=== PATIENT | female | born 1980 | race Caucasian/White ===

== ENCOUNTER 2017-12-08 02:52 | Inpatient (IN) | payer MEDICAID ==
[~2017-12-08] VITALS: Ht 157.5 cm; Wt 65.3 kg
[2017-12-08 03:13] LABS: BASOPHILS 0.1 % (0-2); EOSINOPHILS 2.3 % (0-7); HEMATOCRIT 40.2 % (36.0-48.0); HEMOGLOBIN 13.8 g/dL (12-16); IMMATURE GRANULOCYTES 0.2 % (0-5); LYMPHOCYTES 28.5 % (15-50); MCH 30.9 pg (26.0-34.0); MCHC 34.3 g/dL (31.0-37.0); MCV 90.1 fL (80.0-100.0); MEAN PLATELET VOLUME 9.6 fL (7.4-10.4); NEUTROPHILS 61.9 % (40-80); PLATELET COUNT 265 10x3/uL (130-400); RBC 4.46 10x6/uL (4.00-5.40); RDW 12.2 % (11.5-14.5)
[2017-12-08 03:23] LABS: APPEARANCE CLEAR (CLEAR); COLOR YELLOW (YELLOW); GLUCOSE NEGATIVE (NEGATIVE); KETONE NEGATIVE (NEGATIVE); NITRITE NEGATIVE (NEGATIVE); PROTEIN NEGATIVE (NEGATIVE); SPECIFIC GRAVITY 1.005 (1.005-1.020); UROBILINOGEN NORMAL (NORMAL)
[2017-12-08 03:23] LABS: ALBUMIN 3.5 g/dL (3.4-5.0); ALKALINE PHOSPHATASE 134 U/L (46-116); ALT (SGPT) 35 U/L (10-68); AMYLASE - SERUM 68 U/L (25-115); CALC OSMOLALITY 279 mosm/kg (275-300); CALCIUM 8.9 mg/dL (8.5-10.1); CARBON DIOXIDE 29.1 mmol/L (21.0-32.0); CHLORIDE - SERUM 106 mmol/L (98-107); CREATININE - SERUM 0.7 mg/dL (0.6-1.3); GLUCOSE 90 mg/dL (74-106); LIPASE 132 U/L (73-393); PROTEIN - SERUM 7.3 g/dL (6.4-8.2); SODIUM 142 mmol/L (136-145); UREA NITROGEN 5 mg/dL (7-18); eGFR NON AFRICAN AMERICAN > 90 mL/min (90-120)
[2017-12-08 03:24] LABS: BILIRUBIN NEGATIVE (NEGATIVE)
[2017-12-08 03:37] LABS: UDS - AMPHET NEGATIVE QUAL (NEGATIVE); UDS - BARB NEGATIVE QUAL (NEGATIVE); UDS - BENZO NEGATIVE QUAL (NEGATIVE); UDS - COCAINE NEGATIVE QUAL (NEGATIVE); UDS - OPIATE NEGATIVE QUAL (NEGATIVE); UDS - PCP NEGATIVE QUAL (NEGATIVE); UDS - THC NEGATIVE QUAL (NEGATIVE)
[2017-12-08 06:23] VITALS: BP 125/75; BMI 26.6
[2017-12-08] MEDS ORDERED: LITHIUM CI8 MEQ/5 ML (06:36)
[2017-12-08] MEDS ORDERED: FER-IN-SOL DROP50 ML (06:37)
[2017-12-08 07:51] VITALS: BP 125/70
[2017-12-08 10:50] VITALS: BP 120/71
[2017-12-08 14:49] VITALS: BMI 26.5
[2017-12-08 15:25] VITALS: Ht 157.5 cm; Wt 65.3 kg
[2017-12-08 15:55] VITALS: BP 113/69
[2017-12-08 20:00] VITALS: BP 129/55
[2017-12-09] VITALS (7 sets, daily range): BP systolic 119–146; BP diastolic 61–87
[2017-12-09 05:52] LABS: BASOPHILS 0.2 % (0-2); EOSINOPHILS 2.5 % (0-7); HEMOGLOBIN 11.3 g/dL (12-16); IMMATURE GRANULOCYTES 0.2 % (0-5); LYMPHOCYTES 27.8 % (15-50); MCH 30.2 pg (26.0-34.0); MCHC 33.2 g/dL (31.0-37.0); MCV 90.9 fL (80.0-100.0); MEAN PLATELET VOLUME 10.3 fL (7.4-10.4); MONOCYTES 8.4 % (2-11); NEUTROPHILS 60.9 % (40-80); PLATELET COUNT 221 10x3/uL (130-400); RBC 3.74 10x6/uL (4.00-5.40); RDW 12.2 % (11.5-14.5)
[2017-12-09 05:54] LABS: WBC 5.6 10x3/uL (4.8-10.8)
[2017-12-09 06:19] LABS: CALCIUM 7.9 mg/dL (8.5-10.1); CARBON DIOXIDE 23.8 mmol/L (21.0-32.0); CHLORIDE - SERUM 108 mmol/L (98-107); POTASSIUM - SERUM 3.9 mmol/L (3.5-5.1); SODIUM 140 mmol/L (136-145); UREA NITROGEN 5 mg/dL (7-18)
[2017-12-09 06:32] LABS: CALC OSMOLALITY 273 mosm/kg (275-300); CREATININE - SERUM 0.5 mg/dL (0.6-1.3); GLUCOSE 65 mg/dL (74-106); eGFR NON AFRICAN AMERICAN > 90 mL/min (90-120)
[2017-12-10 04:19] VITALS: BP 155/87
[2017-12-10 04:55] LABS: BASOPHILS 0.1 % (0-2); EOSINOPHILS 1.9 % (0-7); HEMATOCRIT 33.4 % (36.0-48.0); HEMOGLOBIN 10.9 g/dL (12-16); IMMATURE GRANULOCYTES 0.1 % (0-5); LYMPHOCYTES 20.4 % (15-50); MCH 29.7 pg (26.0-34.0); MCHC 32.6 g/dL (31.0-37.0); MEAN PLATELET VOLUME 10.2 fL (7.4-10.4); MONOCYTES 6.9 % (2-11); NEUTROPHILS 70.6 % (40-80); PLATELET COUNT 203 10x3/uL (130-400); RBC 3.67 10x6/uL (4.00-5.40)
[2017-12-10 05:13] LABS: CALCIUM 7.9 mg/dL (8.5-10.1); CHLORIDE - SERUM 107 mmol/L (98-107); CREATININE - SERUM 0.6 mg/dL (0.6-1.3); POTASSIUM - SERUM 3.4 mmol/L (3.5-5.1); SODIUM 142 mmol/L (136-145); eGFR NON AFRICAN AMERICAN > 90 mL/min (90-120)
[2017-12-10 05:21] LABS: CALC OSMOLALITY 280 mosm/kg (275-300); GLUCOSE 136 mg/dL (74-106); UREA NITROGEN 2 mg/dL (7-18)
[2017-12-10 08:04] VITALS: BP 125/77
[2017-12-10 11:43] VITALS: BP 128/84
[2017-12-10] MEDS ORDERED: NICODERM C1 PATCH .1 TRANSDERM (13:52)
[2017-12-10] MEDS ORDERED: PROTONIX40 MG PO (13:53)
[2017-12-10] MEDS ORDERED: ZOFRAN4 MG PO (13:53)
== END 2017-12-10 16:21 | disposition home or self-care (01) | DRG 389 ==
LOC: D.ER 02:52 → D.M2 04:44 → D.EDHOLD 04:44 → D.M2 05:01
PROVIDERS: Family Medicine; Internal Medicine Nephrology
DX: K56.609 Unspecified intestinal obstruction, unspecified as to partial versus complete obstruction (principal); F17.203 Nicotine dependence unspecified, with withdrawal; K21.9 Gastro-esophageal reflux disease without esophagitis; G47.00 Insomnia, unspecified

== ENCOUNTER 2017-12-21 23:24 | Emergency (ER) | payer MEDICAID ==
[~2017-12-21] VITALS: Ht 157.5 cm; Wt 63.6 kg
[~2017-12-21 23:24] MED LIST: FER-IN-SOL DROP50 ML; LITHIUM CI8 MEQ/5 ML; NICODERM C1 PATCH .1 TRANSDERM; PROTONIX40 MG PO; ZOFRAN4 MG PO
[2017-12-21 23:31] VITALS: BP 134/91; Ht 157.5 cm; Wt 63.6 kg
[2017-12-22 00:13] LABS: BASOPHILS 0.3 % (0-2); EOSINOPHILS 1.9 % (0-7); HEMOGLOBIN 13.6 g/dL (12-16); IMMATURE GRANULOCYTES 0.2 % (0-5); LYMPHOCYTES 38.3 % (15-50); MCH 30.2 pg (26.0-34.0); MCHC 33.2 g/dL (31.0-37.0); MCV 91.1 fL (80.0-100.0); MONOCYTES 9.9 % (2-11); NEUTROPHILS 49.4 % (40-80); RDW 12.2 % (11.5-14.5); WBC 5.9 10x3/uL (4.8-10.8)
[2017-12-22 00:16] LABS: ALBUMIN 3.9 g/dL (3.4-5.0); ALKALINE PHOSPHATASE 181 U/L (46-116); ALT (SGPT) 30 U/L (10-68); BILIRUBIN - TOTAL 0.75 mg/dL (0.2-1.3); CALC OSMOLALITY 282 mosm/kg (275-300); CARBON DIOXIDE 28.3 mmol/L (21.0-32.0); CHLORIDE - SERUM 104 mmol/L (98-107); CREATININE - SERUM 0.7 mg/dL (0.6-1.3); GLUCOSE 93 mg/dL (74-106); LIPASE 133 U/L (73-393); POTASSIUM - SERUM 3.7 mmol/L (3.5-5.1); SODIUM 143 mmol/L (136-145); UREA NITROGEN 7 mg/dL (7-18); eGFR NON AFRICAN AMERICAN > 90 mL/min (90-120)
[2017-12-22 00:17] LABS: PLATELET COUNT 325 10x3/uL (130-400)
== END 2017-12-22 00:16 | disposition left against medical advice (07) ==
LOC: D.ER 23:24
PROVIDERS: Family Medicine
DX: R10.9 Unspecified abdominal pain (principal); F17.200 Nicotine dependence, unspecified, uncomplicated

== ENCOUNTER 2018-01-09 16:12 | Emergency (ER) | payer MEDICAID ==
[~2018-01-09] VITALS: Ht 157.5 cm; Wt 63.6 kg
[2018-01-09 16:29] VITALS: Ht 157.5 cm; Wt 63.6 kg
[2018-01-09 22:52] LABS: BASOPHILS 0.4 % (0-2); HEMATOCRIT 35.8 % (36.0-48.0); HEMOGLOBIN 11.8 g/dL (12-16); IMMATURE GRANULOCYTES 0.1 % (0-5); LYMPHOCYTES 38.3 % (15-50); MCH 29.8 pg (26.0-34.0); MCV 90.4 fL (80.0-100.0); MEAN PLATELET VOLUME 10.1 fL (7.4-10.4); MONOCYTES 7.8 % (2-11); NEUTROPHILS 49.4 % (40-80); RBC 3.96 10x6/uL (4.00-5.40); RDW 12.4 % (11.5-14.5); WBC 7.2 10x3/uL (4.8-10.8)
[2018-01-09 22:53] LABS: PLATELET COUNT 254 10x3/uL (130-400)
[2018-01-09 23:11] LABS: HCG SERUM NEGATIVE (NEGATIVE)
[2018-01-09 23:15] LABS: ALBUMIN 3.3 g/dL (3.4-5.0); ALKALINE PHOSPHATASE 154 U/L (46-116); ALT (SGPT) 17 U/L (10-68); BILIRUBIN - TOTAL 0.31 mg/dL (0.2-1.3); CALC OSMOLALITY 279 mosm/kg (275-300); CALCIUM 8.4 mg/dL (8.5-10.1); CARBON DIOXIDE 22.8 mmol/L (21.0-32.0); CHLORIDE - SERUM 110 mmol/L (98-107); CREATININE - SERUM 0.7 mg/dL (0.6-1.3); GLUCOSE 87 mg/dL (74-106); POTASSIUM - SERUM 3.8 mmol/L (3.5-5.1); PROTEIN - SERUM 6.8 g/dL (6.4-8.2); SODIUM 142 mmol/L (136-145); UREA NITROGEN 8 mg/dL (7-18); eGFR NON AFRICAN AMERICAN > 90 mL/min (90-120)
[2018-01-09 23:18] LABS: APPEARANCE CLEAR (CLEAR); BILIRUBIN NEGATIVE (NEGATIVE); COLOR YELLOW (YELLOW); GLUCOSE NEGATIVE (NEGATIVE); KETONE NEGATIVE (NEGATIVE); NITRITE NEGATIVE (NEGATIVE); PROTEIN NEGATIVE (NEGATIVE); UROBILINOGEN NORMAL (NORMAL)
[2018-01-09 23:24] LABS: THYROID STIMULATING HORMONE 0.86 uIU/mL (0.36-3.74)
[2018-01-09] MEDS ORDERED: NORCO 7.5/325 T1 TA1 PO (23:42)
[2018-01-09 23:51] VITALS: BP 117/81
== END 2018-01-09 23:51 | disposition home or self-care (01) ==
LOC: D.ER 16:12
PROVIDERS: Family Medicine
DX: M54.5 Low back pain (principal); F17.200 Nicotine dependence, unspecified, uncomplicated

== ENCOUNTER 2018-01-18 00:31 | Emergency (ER) | payer MEDICAID ==
[~2018-01-18] VITALS: Ht 157.5 cm; Wt 59.0 kg
[~2018-01-18 00:31] MED LIST changes: +NORCO 7.5/325 T1 TA1 PO
[2018-01-18 00:34] VITALS: Ht 157.5 cm; Wt 59.0 kg
[2018-01-18 00:53] LABS: APPEARANCE HAZY (CLEAR); BILIRUBIN NEGATIVE (NEGATIVE); COLOR YELLOW (YELLOW); GLUCOSE NEGATIVE (NEGATIVE); KETONE SMALL mg/dL (NEGATIVE); NITRITE NEGATIVE (NEGATIVE); PROTEIN TRACE mg/dL (NEGATIVE); SPECIFIC GRAVITY 1.025 (1.005-1.020); UROBILINOGEN NORMAL (NORMAL)
[2018-01-18 00:54] LABS: HCG URINE NEGATIVE (NEGATIVE)
[2018-01-18 00:56] LABS: UDS - AMPHET NEGATIVE QUAL (NEGATIVE); UDS - BARB NEGATIVE QUAL (NEGATIVE); UDS - BENZO POSITIVE QUAL (NEGATIVE); UDS - COCAINE NEGATIVE QUAL (NEGATIVE); UDS - OPIATE NEGATIVE QUAL (NEGATIVE); UDS - PCP NEGATIVE QUAL (NEGATIVE); UDS - THC NEGATIVE QUAL (NEGATIVE)
[2018-01-18 01:03] LABS: HEMATOCRIT 32.4 % (36.0-48.0); HEMOGLOBIN 10.8 g/dL (12-16); LYMPHOCYTES 39.5 % (15-50); MCHC 33.3 g/dL (31.0-37.0); MEAN PLATELET VOLUME 9.7 fL (7.4-10.4); NEUTROPHILS 51.1 % (40-80); PLATELET COUNT 221 10x3/uL (130-400)
[2018-01-18 01:11] LABS: WHITE CELLS - URINE 0-5 /hpf (0-5)
[2018-01-18 01:12] LABS: BACTERIA MODERATE /hpf (NONE SEEN); CALCIUM OXALATE CRYSTALS RARE /hpf (NONE SEEN); EPITHELIAL CELLS 0-5 /hpf (0-5); GRANULAR CAST OCC /lpf (NONE SEEN); HYALINE CAST OCC /lpf (NONE SEEN); MUCUS <1+ /lpf (NONE SEEN); RED CELLS - URINE >50 /hpf (0-5)
[2018-01-18 01:18] LABS: ALBUMIN 3.4 g/dL (3.4-5.0); ALKALINE PHOSPHATASE 119 U/L (46-116); ALT (SGPT) 20 U/L (10-68); BILIRUBIN - TOTAL 0.61 mg/dL (0.2-1.3); CALC OSMOLALITY 273 mosm/kg (275-300); CALCIUM 8.2 mg/dL (8.5-10.1); CARBON DIOXIDE 29.5 mmol/L (21.0-32.0); CHLORIDE - SERUM 106 mmol/L (98-107); CREATININE - SERUM 0.8 mg/dL (0.6-1.3); POTASSIUM - SERUM 3.5 mmol/L (3.5-5.1); PROTEIN - SERUM 6.1 g/dL (6.4-8.2); SODIUM 139 mmol/L (136-145); UREA NITROGEN 7 mg/dL (7-18); eGFR NON AFRICAN AMERICAN 85 mL/min (90-120)
[2018-01-18 01:20] LABS: GLUCOSE 70 mg/dL (74-106)
[2018-01-18 01:26] LABS: CREATINE KINASE 107 UL (21-215); HCG - QUANTITATIVE (MATERNAL) 0 mIU/mL; LIPASE 121 U/L (73-393); MAGNESIUM - SERUM 2.1 mg/dL (1.8-2.4); PRO BNP 27 pg/mL (0-125); TROPONIN-I < 0.017 ng/mL (0.000-0.060)
[2018-01-18 06:25] VITALS: BP 106/64
== END 2018-01-18 06:24 | disposition home or self-care (01) ==
LOC: D.ER 00:31
PROVIDERS: Family Medicine
DX: R41.82 Altered mental status, unspecified (principal)

== ENCOUNTER 2018-01-18 09:00 | Emergency (ER) | payer MEDICAID ==
[~2018-01-18] VITALS: Ht 157.5 cm; Wt 65.8 kg
[2018-01-18 09:07] VITALS: Ht 157.5 cm; Wt 65.8 kg
[2018-01-18 12:19] VITALS: BP 110/70
== END 2018-01-18 12:21 | disposition home or self-care (01) ==
LOC: D.ER 09:00
PROVIDERS: Family Medicine
DX: E16.2 Hypoglycemia, unspecified (principal); K21.9 Gastro-esophageal reflux disease without esophagitis; F17.200 Nicotine dependence, unspecified, uncomplicated

== ENCOUNTER 2018-01-31 01:13 | Emergency (ER) | payer MEDICAID ==
[~2018-01-31] VITALS: Ht 157.5 cm; Wt 63.6 kg
[2018-01-31 01:27] VITALS: Ht 157.5 cm; Wt 63.6 kg
[2018-01-31 02:29] LABS: ALBUMIN 3.6 g/dL (3.4-5.0); ALKALINE PHOSPHATASE 148 U/L (46-116); ALT (SGPT) 25 U/L (10-68); BILIRUBIN - TOTAL 0.34 mg/dL (0.2-1.3); CALC OSMOLALITY 276 mosm/kg (275-300); CALCIUM 8.1 mg/dL (8.5-10.1); CARBON DIOXIDE 27.4 mmol/L (21.0-32.0); CHLORIDE - SERUM 107 mmol/L (98-107); CREATININE - SERUM 0.7 mg/dL (0.6-1.3); GLUCOSE 92 mg/dL (74-106); LIPASE 812 U/L (73-393); POTASSIUM - SERUM 4.4 mmol/L (3.5-5.1); PROTEIN - SERUM 6.3 g/dL (6.4-8.2); SODIUM 140 mmol/L (136-145); UREA NITROGEN 7 mg/dL (7-18); eGFR NON AFRICAN AMERICAN > 90 mL/min (90-120)
[2018-01-31 02:31] LABS: HCG SERUM NEGATIVE (NEGATIVE)
[2018-01-31 02:32] LABS: BASOPHILS 0.2 % (0-2); EOSINOPHILS 2.8 % (0-7); HEMATOCRIT 34.9 % (36.0-48.0); HEMOGLOBIN 11.5 g/dL (12-16); IMMATURE GRANULOCYTES 0.2 % (0-5); MCH 29.5 pg (26.0-34.0); MCV 89.5 fL (80.0-100.0); MEAN PLATELET VOLUME 9.9 fL (7.4-10.4); MONOCYTES 10.2 % (2-11); NEUTROPHILS 52.6 % (40-80); RDW 12.7 % (11.5-14.5); WBC 8.7 10x3/uL (4.8-10.8)
[2018-01-31 02:37] LABS: PLATELET COUNT 267 10x3/uL (130-400)
[2018-01-31 02:56] LABS: APPEARANCE CLEAR (CLEAR); BILIRUBIN NEGATIVE (NEGATIVE); COLOR DK YELLOW (YELLOW); GLUCOSE NEGATIVE (NEGATIVE); KETONE SMALL mg/dL (NEGATIVE); NITRITE NEGATIVE (NEGATIVE); PROTEIN NEGATIVE (NEGATIVE); SPECIFIC GRAVITY 1.015 (1.005-1.020); UROBILINOGEN NORMAL (NORMAL)
[2018-01-31] MEDS ORDERED: PHENERGAN25 M1 PO (05:10)
[2018-01-31 05:27] VITALS: BP 118/80
== END 2018-01-31 05:27 | disposition home or self-care (01) ==
LOC: D.ER 01:13
PROVIDERS: Family Medicine
DX: K52.9 Noninfective gastroenteritis and colitis, unspecified (principal); R11.10 Vomiting, unspecified; F17.200 Nicotine dependence, unspecified, uncomplicated

== ENCOUNTER 2018-04-03 23:55 | Emergency (ER) | payer MEDICAID ==
[~2018-04-03] VITALS: Ht 157.5 cm; Wt 54.5 kg
[~2018-04-03 23:55] MED LIST changes: +PHENERGAN25 M1 PO
[2018-04-03 23:59] VITALS: Ht 157.5 cm; Wt 54.5 kg
[2018-04-04 00:12] LABS: BASOPHILS 0.3 % (0-2); EOSINOPHILS 3.4 % (0-7); HEMATOCRIT 35.9 % (36.0-48.0); HEMOGLOBIN 11.7 g/dL (12-16); IMMATURE GRANULOCYTES 0.2 % (0-5); LYMPHOCYTES 42.6 % (15-50); MCH 27.9 pg (26.0-34.0); MCHC 32.6 g/dL (31.0-37.0); MCV 85.7 fL (80.0-100.0); MEAN PLATELET VOLUME 9.7 fL (7.4-10.4); MONOCYTES 9.4 % (2-11); NEUTROPHILS 44.1 % (40-80); PLATELET COUNT 264 10x3/uL (130-400); RBC 4.19 10x6/uL (4.00-5.40); RDW 13.6 % (11.5-14.5); WBC 6.2 10x3/uL (4.8-10.8)
[2018-04-04 00:25] LABS: HCG SERUM NEGATIVE (NEGATIVE)
[2018-04-04 00:39] LABS: ALBUMIN 3.7 g/dL (3.4-5.0); ALKALINE PHOSPHATASE 159 U/L (46-116); ALT (SGPT) 58 U/L (10-68); AMYLASE - SERUM 73 U/L (25-115); BILIRUBIN - TOTAL 0.34 mg/dL (0.2-1.3); CALC OSMOLALITY 271 mosm/kg (275-300); CALCIUM 8.4 mg/dL (8.5-10.1); CARBON DIOXIDE 25.6 mmol/L (21.0-32.0); CHLORIDE - SERUM 105 mmol/L (98-107); CREATININE - SERUM 0.7 mg/dL (0.6-1.3); GLUCOSE 95 mg/dL (74-106); LIPASE 212 U/L (73-393); POTASSIUM - SERUM 3.8 mmol/L (3.5-5.1); PROTEIN - SERUM 7.2 g/dL (6.4-8.2); SODIUM 137 mmol/L (136-145); UREA NITROGEN 8 mg/dL (7-18); eGFR NON AFRICAN AMERICAN > 90 mL/min (90-120)
[2018-04-04 01:13] LABS: APPEARANCE CLEAR (CLEAR); BILIRUBIN NEGATIVE (NEGATIVE); COLOR YELLOW (YELLOW); GLUCOSE NEGATIVE (NEGATIVE); KETONE NEGATIVE (NEGATIVE); NITRITE NEGATIVE (NEGATIVE); PROTEIN NEGATIVE (NEGATIVE); UROBILINOGEN NORMAL (NORMAL)
[2018-04-04] MEDS ORDERED: LEVSIN/ANASP0.125 MG PO (04:58)
[2018-04-04 05:20] VITALS: BP 118/54
== END 2018-04-04 05:21 | disposition home or self-care (01) ==
LOC: D.ER 23:55
PROVIDERS: Family Medicine
DX: R10.9 Unspecified abdominal pain (principal); R11.0 Nausea; F17.200 Nicotine dependence, unspecified, uncomplicated

== ENCOUNTER 2018-05-30 23:08 | Emergency (ER) | payer MEDICAID ==
[~2018-05-30] VITALS: Ht 157.5 cm; Wt 59.1 kg
[~2018-05-30 23:08] MED LIST changes: +LEVSIN/ANASP0.125 MG PO
[2018-05-30 23:11] VITALS: Ht 157.5 cm; Wt 59.1 kg
[2018-05-30 23:20] LABS: HEMATOCRIT 36.2 % (36.0-48.0); HEMOGLOBIN 11.7 g/dL (12-16); LYMPHOCYTES 37.1 % (15-50); MCHC 32.3 g/dL (31.0-37.0); MCV 83.6 fL (80.0-100.0); MEAN PLATELET VOLUME 9.7 fL (7.4-10.4); NEUTROPHILS 55.1 % (40-80); RBC 4.33 10x6/uL (4.00-5.40); RDW 15.1 % (11.5-14.5); WBC 8.6 10x3/uL (4.8-10.8)
[2018-05-30 23:21] LABS: PLATELET COUNT 336 10x3/uL (130-400)
[2018-05-30 23:35] LABS: ALBUMIN 3.7 g/dL (3.4-5.0); ALKALINE PHOSPHATASE 158 U/L (46-116); ALT (SGPT) 17 U/L (10-68); BILIRUBIN - TOTAL 0.41 mg/dL (0.2-1.3); CALC OSMOLALITY 278 mosm/kg (275-300); CALCIUM 8.9 mg/dL (8.5-10.1); CARBON DIOXIDE 18.9 mmol/L (21.0-32.0); CHLORIDE - SERUM 105 mmol/L (98-107); CREATININE - SERUM 0.8 mg/dL (0.6-1.3); GLUCOSE 105 mg/dL (74-106); POTASSIUM - SERUM 3.5 mmol/L (3.5-5.1); PROTEIN - SERUM 7.8 g/dL (6.4-8.2); SODIUM 140 mmol/L (136-145); UREA NITROGEN 13 mg/dL (7-18); eGFR NON AFRICAN AMERICAN 85 mL/min (90-120)
[2018-05-30 23:52] LABS: APPEARANCE CLEAR (CLEAR); BILIRUBIN NEGATIVE (NEGATIVE); COLOR YELLOW (YELLOW); GLUCOSE NEGATIVE (NEGATIVE); KETONE NEGATIVE (NEGATIVE); NITRITE NEGATIVE (NEGATIVE); PROTEIN NEGATIVE (NEGATIVE)
[2018-05-30 23:53] LABS: BACTERIA NONE SEEN /hpf (NONE SEEN); EPITHELIAL CELLS 0-5 /hpf (0-5); RED CELLS - URINE 0-5 /hpf (0-5); WHITE CELLS - URINE 0-5 /hpf (0-5)
[2018-05-30 23:55] LABS: UDS - AMPHET POSITIVE QUAL (NEGATIVE); UDS - BARB NEGATIVE QUAL (NEGATIVE); UDS - BENZO NEGATIVE QUAL (NEGATIVE); UDS - COCAINE NEGATIVE QUAL (NEGATIVE); UDS - OPIATE NEGATIVE QUAL (NEGATIVE); UDS - PCP NEGATIVE QUAL (NEGATIVE); UDS - THC NEGATIVE QUAL (NEGATIVE)
[2018-05-31 05:21] VITALS: BP 133/75
== END 2018-05-31 05:21 | disposition home or self-care (01) ==
LOC: D.ER 23:08
PROVIDERS: Family Medicine
DX: F15.10 Other stimulant abuse, uncomplicated (principal); F17.200 Nicotine dependence, unspecified, uncomplicated

== ENCOUNTER 2018-07-08 04:08 | Emergency (ER) | payer MEDICAID ==
[~2018-07-08] VITALS: Ht 157.5 cm; Wt 59.1 kg
[2018-07-08 04:18] VITALS: Ht 157.5 cm; Wt 59.1 kg
[2018-07-08 05:09] LABS: BASOPHILS 0.2 % (0-2); EOSINOPHILS 0.5 % (0-7); HEMOGLOBIN 10.5 g/dL (12-16); IMMATURE GRANULOCYTES 0.2 % (0-5); LYMPHOCYTES 23.1 % (15-50); MCHC 31.8 g/dL (31.0-37.0); MCV 81.7 fL (80.0-100.0); MEAN PLATELET VOLUME 9.5 fL (7.4-10.4); MONOCYTES 8.7 % (2-11); NEUTROPHILS 67.3 % (40-80); RBC 4.04 10x6/uL (4.00-5.40); RDW 15.7 % (11.5-14.5); WBC 6.6 10x3/uL (4.8-10.8)
[2018-07-08 05:15] LABS: PLATELET COUNT 222 10x3/uL (130-400)
[2018-07-08 05:19] LABS: COLOR STRAW (YELLOW); HCG URINE NEGATIVE (NEGATIVE)
[2018-07-08 05:20] LABS: APPEARANCE CLEAR (CLEAR); BILIRUBIN NEGATIVE (NEGATIVE); GLUCOSE NEGATIVE (NEGATIVE); KETONE NEGATIVE (NEGATIVE); NITRITE NEGATIVE (NEGATIVE); PROTEIN NEGATIVE (NEGATIVE); SPECIFIC GRAVITY 1.005 (1.005-1.020); UROBILINOGEN NORMAL (NORMAL)
[2018-07-08 05:24] LABS: ALBUMIN 3.3 g/dL (3.4-5.0); ALKALINE PHOSPHATASE 234 U/L (46-116); ALT (SGPT) 248 U/L (10-68); BILIRUBIN - TOTAL 0.22 mg/dL (0.2-1.3); CALC OSMOLALITY 279 mosm/kg (275-300); CALCIUM 8.5 mg/dL (8.5-10.1); CARBON DIOXIDE 26.3 mmol/L (21.0-32.0); CHLORIDE - SERUM 105 mmol/L (98-107); CREATININE - SERUM 0.7 mg/dL (0.6-1.3); GLUCOSE 84 mg/dL (74-106); POTASSIUM - SERUM 4.3 mmol/L (3.5-5.1); PROTEIN - SERUM 7.1 g/dL (6.4-8.2); SODIUM 141 mmol/L (136-145); UREA NITROGEN 12 mg/dL (7-18); eGFR NON AFRICAN AMERICAN > 90 mL/min (90-120)
[2018-07-08 05:27] LABS: CREATINE KINASE 138 UL (21-215); TROPONIN-I < 0.017 ng/mL (0.000-0.060)
[2018-07-08 06:01] LABS: UDS - AMPHET NEGATIVE QUAL (NEGATIVE); UDS - BARB NEGATIVE QUAL (NEGATIVE); UDS - BENZO NEGATIVE QUAL (NEGATIVE); UDS - COCAINE NEGATIVE QUAL (NEGATIVE); UDS - OPIATE POSITIVE QUAL (NEGATIVE); UDS - PCP NEGATIVE QUAL (NEGATIVE); UDS - THC NEGATIVE QUAL (NEGATIVE)
[2018-07-08 07:37] LABS: AMYLASE - SERUM 65 U/L (25-115); LIPASE 256 U/L (73-393)
[2018-07-08 08:25] VITALS: BP 109/70
[2018-07-08 08:42] LABS: HIV 1 & 2- RAPID SCREEN NEGATIVE (NEGATIVE)
[2018-07-09 07:23] LABS: FOLATE (FOLIC ACID) - SERUM 7.9 ng/mL (>3.0)
[2018-07-09 11:13] LABS: HEPATITIS C ANTIBODY <0.1 S/CO RAT (0.0-0.9)
== END 2018-07-08 08:25 | disposition home or self-care (01) ==
LOC: D.ER 04:08
PROVIDERS: Emergency Medicine; Family Medicine
DX: R10.9 Unspecified abdominal pain (principal); D64.9 Anemia, unspecified; K75.9 Inflammatory liver disease, unspecified

== ENCOUNTER 2018-07-16 17:32 | Emergency (ER) | payer MEDICAID ==
[~2018-07-16] VITALS: Ht 157.5 cm; Wt 63.6 kg
[2018-07-16 17:56] VITALS: Ht 157.5 cm; Wt 63.6 kg
[2018-07-16] MEDS ORDERED: SEROQUEL100 MG PO (17:59)
[2018-07-16] MEDS ORDERED: BACLOFEN10 MG PO (18:04)
[2018-07-16] MEDS ORDERED: PROZAC20 MG PO (18:04)
[2018-07-16 19:02] LABS: BASOPHILS 0.4 % (0-2); EOSINOPHILS 2.1 % (0-7); HEMATOCRIT 34.3 % (36.0-48.0); HEMOGLOBIN 10.9 g/dL (12-16); LYMPHOCYTES 25.5 % (15-50); MCH 25.8 pg (26.0-34.0); MCHC 31.8 g/dL (31.0-37.0); MCV 81.3 fL (80.0-100.0); MEAN PLATELET VOLUME 10.2 fL (7.4-10.4); RBC 4.22 10x6/uL (4.00-5.40); RDW 15.9 % (11.5-14.5); WBC 5.3 10x3/uL (4.8-10.8)
[2018-07-16 19:05] LABS: APPEARANCE CLEAR (CLEAR); BILIRUBIN NEGATIVE (NEGATIVE); COLOR YELLOW (YELLOW); EPITHELIAL CELLS 0-5 /hpf (0-5); GLUCOSE NEGATIVE (NEGATIVE); KETONE NEGATIVE (NEGATIVE); NITRITE NEGATIVE (NEGATIVE); PROTEIN NEGATIVE (NEGATIVE); RED CELLS - URINE OCC /hpf (0-5); UROBILINOGEN NORMAL (NORMAL); WHITE CELLS - URINE NSEEN /hpf (0-5)
[2018-07-16 19:07] LABS: PLATELET COUNT 298 10x3/uL (130-400)
[2018-07-16 19:14] LABS: ALBUMIN 3.6 g/dL (3.4-5.0); ALKALINE PHOSPHATASE 250 U/L (46-116); ALT (SGPT) 160 U/L (10-68); AMYLASE - SERUM 78 U/L (25-115); BILIRUBIN - TOTAL 0.39 mg/dL (0.2-1.3); CALC OSMOLALITY 279 mosm/kg (275-300); CARBON DIOXIDE 27.4 mmol/L (21.0-32.0); CHLORIDE - SERUM 104 mmol/L (98-107); CREATININE - SERUM 0.7 mg/dL (0.6-1.3); GLUCOSE 118 mg/dL (74-106); LIPASE 151 U/L (73-393); POTASSIUM - SERUM 4.2 mmol/L (3.5-5.1); PROTEIN - SERUM 7.7 g/dL (6.4-8.2); SODIUM 141 mmol/L (136-145); UREA NITROGEN 7 mg/dL (7-18); eGFR NON AFRICAN AMERICAN > 90 mL/min (90-120)
[2018-07-16] MEDS ORDERED: ZOFRAN8 MG PO (21:49)
[2018-07-16 22:18] VITALS: BP 135/57
== END 2018-07-16 22:18 | disposition home or self-care (01) ==
LOC: D.ER 17:32
PROVIDERS: Family Medicine
DX: Z98.84 Bariatric surgery status (principal); N94.6 Dysmenorrhea, unspecified; R11.2 Nausea with vomiting, unspecified

== ENCOUNTER 2018-12-16 00:53 | Inpatient (IN) | payer MEDICAID ==
[~2018-12-16] VITALS: Ht 157.5 cm; Wt 59.0 kg
[~2018-12-16 00:53] MED LIST changes: +BACLOFEN10 MG PO; +PROZAC20 MG PO; +SEROQUEL100 MG PO; +ZOFRAN8 MG PO
[2018-12-16 01:19] LABS: BASOPHILS 0.2 % (0-2); EOSINOPHILS 1.5 % (0-7); HEMATOCRIT 44.3 % (36.0-48.0); IMMATURE GRANULOCYTES 0.4 % (0-5); LYMPHOCYTES 27.6 % (15-50); MCH 28.9 pg (26.0-34.0); MCHC 33.9 g/dL (31.0-37.0); MCV 85.4 fL (80.0-100.0); MONOCYTES 6.1 % (2-11); NEUTROPHILS 64.2 % (40-80); PLATELET COUNT 315 10x3/uL (130-400); RBC 5.19 10x6/uL (4.00-5.40); RDW 21.6 % (11.5-14.5); WBC 12.5 10x3/uL (4.8-10.8)
[2018-12-16 01:27] LABS: ALBUMIN 3.8 g/dL (3.4-5.0); ALKALINE PHOSPHATASE 147 U/L (46-116); ALT (SGPT) 77 U/L (10-68); BILIRUBIN - TOTAL 0.39 mg/dL (0.2-1.3); CALC OSMOLALITY 280 mosm/kg (275-300); CALCIUM 8.7 mg/dL (8.5-10.1); CARBON DIOXIDE 24.1 mmol/L (21.0-32.0); CHLORIDE - SERUM 106 mmol/L (98-107); CREATININE - SERUM 0.7 mg/dL (0.6-1.3); GLUCOSE 122 mg/dL (74-106); POTASSIUM - SERUM 4.1 mmol/L (3.5-5.1); PROTEIN - SERUM 7.5 g/dL (6.4-8.2); SODIUM 141 mmol/L (136-145); UREA NITROGEN 10 mg/dL (7-18); eGFR NON AFRICAN AMERICAN > 90 mL/min (90-120)
[2018-12-16 01:32] LABS: AMYLASE - SERUM 83 U/L (25-115); LIPASE 179 U/L (73-393)
[2018-12-16 01:33] LABS: TROPONIN-I < 0.017 ng/mL (0.000-0.060)
[2018-12-16 01:38] LABS: APPEARANCE CLEAR (CLEAR); BILIRUBIN NEGATIVE (NEGATIVE); COLOR YELLOW (YELLOW); GLUCOSE NEGATIVE (NEGATIVE); KETONE NEGATIVE (NEGATIVE); NITRITE NEGATIVE (NEGATIVE); PROTEIN NEGATIVE (NEGATIVE); SPECIFIC GRAVITY 1.025 (1.005-1.020); UROBILINOGEN NORMAL (NORMAL)
[2018-12-16 01:39] LABS: BACTERIA FEW /hpf (NONE SEEN); EPITHELIAL CELLS 0-5 /hpf (0-5); RED CELLS - URINE 0-5 /hpf (0-5); WHITE CELLS - URINE 0-5 /hpf (0-5)
[2018-12-16 02:27] LABS: HCG URINE NEGATIVE (NEGATIVE)
[2018-12-16 06:00] VITALS: BP 137/67; BMI 23.8
[2018-12-16 09:44] VITALS: BP 140/78
[2018-12-16 12:00] VITALS: BP 121/73
[2018-12-16 14:53] VITALS: Ht 157.5 cm; Wt 59.0 kg
[2018-12-16 18:35] VITALS: BP 119/74
[2018-12-16 20:00] VITALS: BP 113/71
[2018-12-17] VITALS: BP 102/50
[2018-12-17 04:00] VITALS: BP 116/60
[2018-12-17 05:36] LABS: BASOPHILS 0.2 % (0-2); EOSINOPHILS 2.6 % (0-7); IMMATURE GRANULOCYTES 0.4 % (0-5); LYMPHOCYTES 22.7 % (15-50); MCH 28.3 pg (26.0-34.0); MCHC 32.8 g/dL (31.0-37.0); MCV 86.3 fL (80.0-100.0); MEAN PLATELET VOLUME 9.9 fL (7.4-10.4); MONOCYTES 6.2 % (2-11); NEUTROPHILS 67.9 % (40-80); RDW 21.7 % (11.5-14.5)
[2018-12-17 05:39] LABS: CALC OSMOLALITY 279 mosm/kg (275-300); CALCIUM 8.3 mg/dL (8.5-10.1); CARBON DIOXIDE 25.2 mmol/L (21.0-32.0); CHLORIDE - SERUM 109 mmol/L (98-107); CREATININE - SERUM 0.6 mg/dL (0.6-1.3); GLUCOSE 92 mg/dL (74-106); MAGNESIUM - SERUM 1.4 mg/dL (1.8-2.4); PHOSPHOROUS 2.8 mg/dL (2.5-4.9); POTASSIUM - SERUM 3.6 mmol/L (3.5-5.1); SODIUM 142 mmol/L (136-145); eGFR NON AFRICAN AMERICAN > 90 mL/min (90-120)
[2018-12-17 05:42] LABS: HEMATOCRIT 35.4 % (36.0-48.0); HEMOGLOBIN 11.6 g/dL (12-16); PLATELET COUNT 232 10x3/uL (130-400); WBC 5.5 10x3/uL (4.8-10.8)
[2018-12-17 05:45] LABS: UREA NITROGEN 5 mg/dL (7-18)
[2018-12-17 09:38] VITALS: BP 111/67
--- NOTE | 2018-12-17 11:14 | MORECARE ---
CASE MANAGEMENT DISCHARGE SUMMARY PATIENT: LOR REEDER UNIT: [id number] ADM DATE: 12/16/18 AGE: 38 : [birth year] SEX: F ROOM/BED: D.[facility]8 AUTHOR: ERIN MARROQUIN PHYSICIAN: REFERRING PHYSICIAN: JIMENA KNAPP MD DATE OF SERVICE: 12/17/18 Discharge Plan Patient Name: LOR REEDER [facility] [facility] 1980 Planned Disposition: Home Anticipated Discharge Date: Discharge Date: Expected LOS: Initial Reviewer: [email or web address] Initial Review Date: 12/17/2018 Generated: 12/17/18 12:13 pm Patient Name: LOR REEDER Page 88630 at 1114 All edits/amendments must be made on the electronic document DICTATION DATE: 12/17/18 111 CHESS INSTRUCTOR: EMY 12/17/18 1113 RPT#: [id number] DC DATE: STATUS: ADM IN [facility] [address] [place] [address] END OF REPORT
--- NOTE | 2018-12-17 11:27 | MORECARE ---
CASE MANAGEMENT DISCHARGE SUMMARY PATIENT: LOR REEDER UNIT: [id number] ADM DATE: 12/16/18 AGE: 38 : [birth year] SEX: F ROOM/BED: D.2238 AUTHOR: ERIN MARROQUIN PHYSICIAN: REFERRING PHYSICIAN: JIMENA KNAPP MD DATE OF SERVICE: 12/17/18 Discharge Plan Patient Name: LOR REEDER Facility: [facility]:[place] : 1980 Planned Disposition: Home Anticipated Discharge Date: Discharge Date: Expected LOS: Initial Reviewer: [email or web address] Initial Review Date: 12/17/2018 Generated: 12/17/18 12:27 pm Comments DCP- Discharge Planning Updated by [email or web address]: Idalia Patel on 12/17/18 10:[address] Patient Name: LOR REEDER Admission Status: ER Accout number: [id number] Admission Date: 12-16-2018 : 1980 Admission Diagnosis: Attending: RA, Current LOS: 1 Anticipated DC Date: Planned Disposition: Home Primary Insurance: MEDICAID [place] Discharge Planning Comments: CM met with patient to complete initial dc planning assessment. CM educated patient on the CM role and verbal consent given by patient to complete assessment. Patient lives at home with her 21 year old son (Girish). At discharge patient plans to return and feels this is a safe discharge. CM discussed availability of home health and DME if needed. Patient states she is supposed to take her blood sugar 4 times a day, but has lost her glucometer. I provided her with a glucometer and informed her to get a Rx for her strips and lancets. CM will continue to follow and will assist as needed with dc plans/needs. Faculty Physician: Idalia Patel DCPIA - Discharge Planning Initial Assessment Updated by [email or web address]: Idalia Patel on 12/17/18 11:20 am * Is the patient Alert and Oriented? Yes * PCP Carrillo Cota * Pharmacy [facility] on [address] * Preadmission Environment Home with Family * ADLs Independent * Equipment None * List name and contact numbers for known caregivers / representatives who currently or will assist patient after discharge: Girish - son - [phone] Tao Faviola novakienjo ann - [phone] * Verbal permission to speak to the caregivers and representatives has been obtained from the patient. Yes * Community resources currently utilized None * Additional services required to return to the preadmission environment? No * Can the patient safely return to the preadmission environment? Yes * Has this patient been hospitalized within the prior 30 days at any hospital? No Last DP export: 12/17/18 10:13 a Patient Name: LOR REEDER Page 13513 at 1127 All edits/amendments must be made on the electronic document DICTATION DATE: 12/17/181126 INFECTION CONTROL MANAGER: EMY 12/17/181126 RPT#: [id number] DC DATE: STATUS: ADM IN [facility] [address] [place] [address] END OF REPORT
[2018-12-17] MEDS ORDERED: FLORAJEN3 CAPS460 MG PO (11:42)
[2018-12-17] MEDS ORDERED: FLAGYL500 MG PO (11:43)
[2018-12-17] MEDS ORDERED: ZOFRAN ODT4 MG/UDTAB PO (11:43)
[2018-12-17] MEDS ORDERED: LEVAQUIN750 MG PO (11:43)
--- NOTE | 2018-12-17 13:30 | MORECARE ---
CASE MANAGEMENT DISCHARGE SUMMARY PATIENT: OLR REEDER UNIT: [id number] ADM DATE: 12/16/18 AGE: 38 : [birth year] SEX: F ROOM/BED: D.2238 AUTHOR: ERIN MARROQUIN PHYSICIAN: REFERRING PHYSICIAN: JIMENA KNAPP MD DATE OF SERVICE: 12/17/18 Discharge Plan Patient Name: LOR REEDER Facility: [facility]:[place] : 1980 Planned Disposition: Home Anticipated Discharge Date: Discharge Date: Expected LOS: Initial Reviewer: [email or web address] Initial Review Date: 12/17/2018 Generated: 12/17/18 2:30 pm Comments DCP- Discharge Planning Updated by [email or web address]: Idalia Patel on 12/17/18 12:[address] Patient Name: LOR REEDER Encounter No: [id number] : 1980 Primary Insurance: MEDICAID [place] Anticipated DC Date: Planned Disposition: Home External Planned Provider: : DCP follow-up note: Patient and family in agreement with discharge plan. No changes to plan. Case management will follow and assist as needed. Idalia Patel DCP- Discharge Planning Updated by [email or web address]: Idalia Patel on 12/17/18 10:[address] Patient Name: LOR REEDER Admission Status: ER Accout number: [id number] Admission Date: 12-16-2018 : 1980 Admission Diagnosis: Attending: RA, Current LOS: 1 Anticipated DC Date: Planned Disposition: Home Primary Insurance: MEDICAID [place] Discharge Planning Comments: CM met with patient to complete initial dc planning assessment. CM educated patient on the CM role and verbal consent given by patient to complete assessment. Patient lives at home with her 21 year old son (Girish). At discharge patient plans to return and feels this is a safe discharge. CM discussed availability of home health and DME if needed. Patient states she is supposed to take her blood sugar 4 times a day, but has lost her glucometer. I provided her with a glucometer and informed her to get a Rx for her strips and lancets. CM will continue to follow and will assist as needed with dc plans/needs. Urology Nurse: Idalia Patel DCPIA - Discharge Planning Initial Assessment Updated by [email or web address]: Idalia Jorge on 12/17/18 11:20 am * Is the patient Alert and Oriented? Yes * PCP Carrillo Cota * Pharmacy [facility] on [address] * Preadmission Environment Home with Family * ADLs Independent * Equipment None * List name and contact numbers for known caregivers / representatives who currently or will assist patient after discharge: Girish rod - [phone] Tao ayala - [phone] * Verbal permission to speak to the caregivers and representatives has been obtained from the patient. Yes * Community resources currently utilized None * Additional services required to return to the preadmission environment? No * Can the patient safely return to the preadmission environment? Yes * Has this patient been hospitalized within the prior 30 days at any hospital? No Last DP export: 12/17/18 10:27 a Patient Name: LOR REEDER Page 11832 at 1330 All edits/amendments must be made on the electronic document DICTATION DATE: 12/17/18 132 TAXI CAB DRIVER: EMY 12/17/18 1329 RPT#: [id number] [place] DATE: STATUS: ADM IN [facility] [address] [place] [address] END OF REPORT
[2018-12-17 14:11] VITALS: BP 123/67
--- NOTE | 2018-12-18 09:40 | EC ---
PATIENT:LOR REEDER DATE OF SERVICE: 12/16/18 SEX: F MEDICAL RECORD: [id number] DATE OF : [birth year] LOCATION:[facility] AGE OF PATIENT: 38 ADMISSION DATE: 12/16/18 REFERRING PHYSICIAN: INTERPRETING PHYSICIAN: GARY CASEY MD ECHOCARDIOGRAM REPORT ECHO CHARGES 4 ECHO COMPLETE Date: 12/16/18 CLINICAL DIAGNOSIS: SYNCOPE ECHOCARDIOGRAPHIC MEASUREMENTS (adult normal given) AC root (d.<3.7cm) 2.9 cm LV Septum d (<1.2 cm> 0.60 cm Valve Excursion 1.7 cm LV Septum (systole) 1.0 cm Left Atria (s.<4.0cm> 2.0 cm LVPW d(<1.2cm) 0.90 cm RV (d.<2.3cm) 2.7 cm LVPW (sytole) 1.0 cm LV diastole(<5.6CM) 4.9 cm MV E-F(>70mm/sec) cm LV systole 3.6 cm LVOT Diameter 1.7 cm MV exc.(>10mm) 1.3 cm Est.ejection fraction (50-75%) % DOPPLER: LVIT cm/sec A 63.0 cm/sec E 70.0 cm/sec LA cm/sec RVSP 15 mmHg LVOT 83 cm/sec AOP1/2T m/s Asc. Ao 129 cm/sec RVOT 56 cm/sec RA cm/sec PA 68 cm/sec AV Gradient Peak 6.68 mmHg AV Mean 3.87 mmHg AV Area 1.5 cm MV Gradient Peak 3.42 mmHg MV Mean 1.57 mmHg MV Area cm COMMENTS: Administrative Executive: Glory TABARES Journeyman Press Operator: 1 Dr. Casey TAPE# PACS Pericardial Effusion N DATE OF SERVICE: 12/16/2018 FINDINGS: 1. Left ventricular chamber size is within normal limits. Left ventricular systolic function is normal. Overall ejection fraction estimated at 55%. 2. Left atrium, right atrium, and right ventricular chamber sizes are within normal limits. 3. Valvular structures have normal structure and motion. 4. Doppler interrogation reveals mild tricuspid regurgitation, no other valvular insufficiency or stenosis. ECHOCARDIOGRAM REPORT [id number] LOR REEDER 5. No evidence of pericardial effusion or left ventricular thrombus. TRANSINT:[id number] Voice Confirmation ID: [id number] DOCUMENT ID: [id number] GARY CASEY MD at 0940 CC: [id number] DICTATION DATE: 12/16/18 1555 FLOWER PLANTER: 12/17/18 0123 DIS IN 12/17/18 [facility] [address] [place] [address]
--- NOTE | 2018-12-18 11:57 | MORECARE ---
CASE MANAGEMENT DISCHARGE SUMMARY PATIENT: LOR REEDER UNIT: [id number] ADM DATE: 12/16/18 AGE: 38 : 78 SEX: F ROOM/BED: D.2238 AUTHOR: ERIN MARROQUIN PHYSICIAN: REFERRING PHYSICIAN: JIMENA KNAPP MD DATE OF SERVICE: 12/18/18 Discharge Plan Patient Name: LOR REEDER Facility: [facility]:[place] : 1980 Planned Disposition: Home Anticipated Discharge Date: Discharge Date: 12/17/2018 Expected LOS: 0 Initial Reviewer: [email or web address] Initial Review Date: 12/17/2018 Generated: 12/18/18 12:56 pm Comments DCP- Discharge Planning Updated by [email or web address]: Idalia Patel on 12/17/18 12:[address] Patient Name: LOR REEDER Encounter No: [id number] : 1980 Primary Insurance: MEDICAID [place] Anticipated DC Date: Planned Disposition: Home External Planned Provider: : DCP follow-up note: Patient and family in agreement with discharge plan. No changes to plan. Case management will follow and assist as needed. Idalia Patel DCP- Discharge Planning Updated by [email or web address]: Idalia Patel on 12/17/18 10:[address] Patient Name: LOR REEDER Admission Status: ER Accout number: [id number] Admission Date: 12-16-2018 : 1980 Admission Diagnosis: Attending: RA, Current LOS: 1 Anticipated DC Date: Planned Disposition: Home Primary Insurance: MEDICAID [place] Discharge Planning Comments: CM met with patient to complete initial dc planning assessment. CM educated patient on the CM role and verbal consent given by patient to complete assessment. Patient lives at home with her 21 year old son (Girish). At discharge patient plans to return and feels this is a safe discharge. CM discussed availability of home health and DME if needed. Patient states she is supposed to take her blood sugar 4 times a day, but has lost her glucometer. I provided her with a glucometer and informed her to get a Rx for her strips and lancets. CM will continue to follow and will assist as needed with dc plans/needs. Bay Stocker: Idalia Patel DCPIA - Discharge Planning Initial Assessment Updated by [email or web address]: Idalia Jorge on 12/17/18 11:20 am * Is the patient Alert and Oriented? Yes * PCP Carrillo Cota * Pharmacy [facility] on [address] * Preadmission Environment Home with Family * ADLs Independent * Equipment None * List name and contact numbers for known caregivers / representatives who currently or will assist patient after discharge: Girish rod - [phone] Tao ayala - [phone] * Verbal permission to speak to the caregivers and representatives has been obtained from the patient. Yes * Community resources currently utilized None * Additional services required to return to the preadmission environment? No * Can the patient safely return to the preadmission environment? Yes * Has this patient been hospitalized within the prior 30 days at any hospital? No Last DP export: 12/17/18 12:30 p Patient Name: LOR REEDER Page 18477 at 1157 All edits/amendments must be made on the electronic document DICTATION DATE: 12/18/18 1156 LICENSED HOME INSPECTOR: EMY 12/18/18 1156 RPT#: [id number] DC DATE:12/17/18 STATUS: DIS IN [facility] [address] [place] [address] END OF REPORT
== END 2018-12-17 14:17 | disposition home or self-care (01) | DRG 392 ==
LOC: D.ER 00:53 → D.MS 03:44
PROVIDERS: Family Medicine; ADMIT Family Medicine; ATTEND Family Medicine
DX: A09 Infectious gastroenteritis and colitis, unspecified (principal); K56.7 Ileus, unspecified; E86.0 Dehydration; M54.5 Low back pain; J44.9 Chronic obstructive pulmonary disease, unspecified; F41.9 Anxiety disorder, unspecified

== ENCOUNTER 2018-12-17 20:36 | Emergency (ER) | payer MEDICAID ==
[~2018-12-17] VITALS: Ht 157.5 cm; Wt 59.1 kg
[~2018-12-17 20:36] MED LIST changes: +FLAGYL500 MG PO; +FLORAJEN3 CAPS460 MG PO; +LEVAQUIN750 MG PO; +ZOFRAN ODT4 MG/UDTAB PO
[2018-12-17 20:55] VITALS: BP 118/78; Ht 157.5 cm; Wt 59.1 kg
[2018-12-17 21:18] LABS: BASOPHILS 0.1 % (0-2); EOSINOPHILS 1.6 % (0-7); HEMATOCRIT 37.4 % (36.0-48.0); HEMOGLOBIN 12.6 g/dL (12-16); IMMATURE GRANULOCYTES 0.2 % (0-5); LYMPHOCYTES 20.8 % (15-50); MCH 28.9 pg (26.0-34.0); MCHC 33.7 g/dL (31.0-37.0); MCV 85.8 fL (80.0-100.0); MEAN PLATELET VOLUME 9.7 fL (7.4-10.4); MONOCYTES 6.4 % (2-11); NEUTROPHILS 70.9 % (40-80); PLATELET COUNT 229 10x3/uL (130-400); RBC 4.36 10x6/uL (4.00-5.40); RDW 21.4 % (11.5-14.5); WBC 8.3 10x3/uL (4.8-10.8)
[2018-12-17 21:26] LABS: ALBUMIN 3.4 g/dL (3.4-5.0); ALKALINE PHOSPHATASE 307 U/L (46-116); BILIRUBIN - TOTAL 0.62 mg/dL (0.2-1.3); CALCIUM 8.3 mg/dL (8.5-10.1); CARBON DIOXIDE 27.8 mmol/L (21.0-32.0); CHLORIDE - SERUM 105 mmol/L (98-107); CREATININE - SERUM 0.6 mg/dL (0.6-1.3); GLUCOSE 73 mg/dL (74-106); POTASSIUM - SERUM 4.1 mmol/L (3.5-5.1); PROTEIN - SERUM 6.6 g/dL (6.4-8.2); SODIUM 140 mmol/L (136-145); eGFR NON AFRICAN AMERICAN > 90 mL/min (90-120)
[2018-12-17 21:27] LABS: ALT (SGPT) 549 U/L (10-68); CALC OSMOLALITY 275 mosm/kg (275-300); UREA NITROGEN 7 mg/dL (7-18)
== END 2018-12-17 22:30 | disposition left against medical advice (07) ==
LOC: D.ER 20:36
PROVIDERS: Family Medicine
DX: R10.9 Unspecified abdominal pain (principal)

== ENCOUNTER 2018-12-23 14:26 | Emergency (ER) | payer MEDICAID ==
[~2018-12-23] VITALS: Ht 157.5 cm; Wt 59.1 kg
[2018-12-23 14:40] VITALS: Ht 157.5 cm; Wt 59.1 kg
[2018-12-23 15:13] LABS: BASOPHILS 0.3 % (0-2); EOSINOPHILS 2.5 % (0-7); HEMATOCRIT 38.8 % (36.0-48.0); IMMATURE GRANULOCYTES 0.4 % (0-5); LYMPHOCYTES 32.8 % (15-50); MCH 28.8 pg (26.0-34.0); MCHC 33.5 g/dL (31.0-37.0); MCV 85.8 fL (80.0-100.0); MEAN PLATELET VOLUME 10.1 fL (7.4-10.4); MONOCYTES 7.3 % (2-11); NEUTROPHILS 56.7 % (40-80); PLATELET COUNT 232 10x3/uL (130-400); RBC 4.52 10x6/uL (4.00-5.40); RDW 21.1 % (11.5-14.5)
[2018-12-23 15:30] LABS: ALBUMIN 2.9 g/dL (3.4-5.0); ALKALINE PHOSPHATASE 220 U/L (46-116); ALT (SGPT) 144 U/L (10-68); BILIRUBIN - TOTAL 0.36 mg/dL (0.2-1.3); CALCIUM 8.1 mg/dL (8.5-10.1); CARBON DIOXIDE 27.7 mmol/L (21.0-32.0); CHLORIDE - SERUM 107 mmol/L (98-107); CREATININE - SERUM 0.7 mg/dL (0.6-1.3); POTASSIUM - SERUM 4.1 mmol/L (3.5-5.1); PROTEIN - SERUM 5.9 g/dL (6.4-8.2); SODIUM 141 mmol/L (136-145); UREA NITROGEN 8 mg/dL (7-18); eGFR NON AFRICAN AMERICAN > 90 mL/min (90-120)
[2018-12-23 15:34] LABS: AMYLASE - SERUM 58 U/L (25-115); LIPASE 114 U/L (73-393)
[2018-12-23 15:39] LABS: CALC OSMOLALITY 279 mosm/kg (275-300); GLUCOSE 110 mg/dL (74-106); TROPONIN-I < 0.017 ng/mL (0.000-0.060)
[2018-12-23] MEDS ORDERED: CIPRO500 MG PO (18:59)
[2018-12-23] MEDS ORDERED: FLAGYL500 MG PO (18:59)
[2018-12-23 19:27] VITALS: BP 101/54
[2018-12-23 20:25] LABS: APPEARANCE TURBID (CLEAR); BILIRUBIN NEGATIVE (NEGATIVE); COLOR YELLOW (YELLOW); GLUCOSE NEGATIVE (NEGATIVE); KETONE NEGATIVE (NEGATIVE); NITRITE NEGATIVE (NEGATIVE); PROTEIN TRACE mg/dL (NEGATIVE); SPECIFIC GRAVITY 1.025 (1.005-1.020); UROBILINOGEN NORMAL (NORMAL); WHITE CELLS - URINE OCC /hpf (0-5)
[2018-12-23 20:26] LABS: AMORPHOUS SEDIMENT >1+ /lpf (NONE SEEN); BACTERIA FEW /hpf (NONE SEEN); EPITHELIAL CELLS 0-5 /hpf (0-5)
== END 2018-12-23 19:27 | disposition home or self-care (01) ==
LOC: D.ER 14:26
PROVIDERS: Family Medicine
DX: R10.9 Unspecified abdominal pain (principal); Z91.14 Patient's other noncompliance with medication regimen

== ENCOUNTER 2019-03-20 04:47 | Emergency (ER) | payer MEDICAID ==
[~2019-03-20] VITALS: Ht 157.5 cm; Wt 59.1 kg
[~2019-03-20 04:47] MED LIST changes: +CIPRO500 MG PO
[2019-03-20 04:55] VITALS: Ht 157.5 cm; Wt 59.1 kg
[2019-03-20 06:17] VITALS: BP 119/76
== END 2019-03-20 06:15 | disposition home or self-care (01) ==
LOC: D.ER 04:47
DX: S90.862A Insect bite (nonvenomous), left foot, initial encounter (principal)

== ENCOUNTER 2019-04-11 21:21 | Emergency (ER) | payer MEDICAID ==
[~2019-04-11] VITALS: Ht 157.5 cm; Wt 59.1 kg
[2019-04-11 21:25] VITALS: Ht 157.5 cm; Wt 59.1 kg
[2019-04-11 21:47] LABS: BASOPHILS 0.3 % (0-2); EOSINOPHILS 0 % (0-7); HEMATOCRIT 41.5 % (36.0-48.0); HEMOGLOBIN 13.6 g/dL (12-16); IMMATURE GRANULOCYTES 0.3 % (0-5); LYMPHOCYTES 26.9 % (15-50); MCH 30.2 pg (26.0-34.0); MCHC 32.8 g/dL (31.0-37.0); MEAN PLATELET VOLUME 10.7 fL (7.4-10.4); NEUTROPHILS 66.5 % (40-80); RBC 4.51 10x6/uL (4.00-5.40); RDW 12.6 % (11.5-14.5); WBC 3.2 10x3/uL (4.8-10.8)
[2019-04-11 21:48] LABS: PLATELET COUNT 145 10x3/uL (130-400)
[2019-04-11 21:58] LABS: AMORPHOUS SEDIMENT <1+ /lpf (NONE SEEN); APPEARANCE CLOUDY (CLEAR); BACTERIA FEW /hpf (NEGATIVE); BILIRUBIN NEGATIVE (NEGATIVE); COLOR YELLOW (YELLOW); EPITHELIAL CELLS 0-5 /hpf (0-5); GLUCOSE NEGATIVE (NEGATIVE); KETONE LARGE mg/dL (NEGATIVE); NITRITE NEGATIVE (NEGATIVE); PROTEIN NEGATIVE (NEGATIVE); RED CELLS - URINE >50 /hpf (0-5); UROBILINOGEN NORMAL (NORMAL); WHITE CELLS - URINE 0-5 /hpf (NEGATIVE)
[2019-04-11 22:02] LABS: ALBUMIN 3.4 g/dL (3.4-5.0); ALKALINE PHOSPHATASE 142 U/L (46-116); ALT (SGPT) 26 U/L (10-68); BILIRUBIN - TOTAL 0.27 mg/dL (0.2-1.3); CALC OSMOLALITY 275 mosm/kg (275-300); CALCIUM 7.9 mg/dL (8.5-10.1); CARBON DIOXIDE 24.9 mmol/L (21.0-32.0); CHLORIDE - SERUM 105 mmol/L (98-107); CREATININE - SERUM 0.8 mg/dL (0.6-1.3); GLUCOSE 99 mg/dL (74-106); POTASSIUM - SERUM 3.9 mmol/L (3.5-5.1); SODIUM 138 mmol/L (136-145); UREA NITROGEN 12 mg/dL (7-18); eGFR NON AFRICAN AMERICAN 85 mL/min (90-120)
[2019-04-11 23:21] LABS: UDS - AMPHET NEGATIVE QUAL (NEGATIVE); UDS - BARB NEGATIVE QUAL (NEGATIVE); UDS - BENZO NEGATIVE QUAL (NEGATIVE); UDS - COCAINE NEGATIVE QUAL (NEGATIVE); UDS - OPIATE NEGATIVE QUAL (NEGATIVE); UDS - PCP NEGATIVE QUAL (NEGATIVE); UDS - THC NEGATIVE QUAL (NEGATIVE)
[2019-04-12 02:04] VITALS: BP 111/75
== END 2019-04-12 02:05 | disposition home or self-care (01) ==
LOC: D.ER 21:21
PROVIDERS: Family Medicine
DX: R50.9 Fever, unspecified (principal); F17.210 Nicotine dependence, cigarettes, uncomplicated

== ENCOUNTER 2019-06-16 13:50 | Emergency (ER) | payer MEDICAID ==
[~2019-06-16] VITALS: Ht 157.5 cm; Wt 61.4 kg
[2019-06-16 13:55] VITALS: BP 120/77; Ht 157.5 cm; Wt 61.4 kg
== END 2019-06-16 15:46 | disposition left against medical advice (07) ==
LOC: D.ER 13:50
DX: M54.9 Dorsalgia, unspecified (principal)

== ENCOUNTER 2019-07-18 19:39 | Emergency (ER) | payer MEDICAID ==
[~2019-07-18] VITALS: Ht 157.5 cm; Wt 59.1 kg
[2019-07-18 20:28] VITALS: Ht 157.5 cm; Wt 59.1 kg
[2019-07-18 21:16] LABS: BASOPHILS 0.2 % (0-2); EOSINOPHILS 0.5 % (0-7); HEMATOCRIT 38.6 % (36.0-48.0); HEMOGLOBIN 12.9 g/dL (12-16); IMMATURE GRANULOCYTES 0.2 % (0-5); LYMPHOCYTES 27.3 % (15-50); MCH 30.7 pg (26.0-34.0); MCHC 33.4 g/dL (31.0-37.0); MCV 91.9 fL (80.0-100.0); MEAN PLATELET VOLUME 9.7 fL (7.4-10.4); MONOCYTES 9.4 % (2-11); NEUTROPHILS 62.4 % (40-80); RDW 13.4 % (11.5-14.5); WBC 6.5 10x3/uL (4.8-10.8)
[2019-07-18 21:17] LABS: APPEARANCE CLEAR (CLEAR); BILIRUBIN NEGATIVE (NEGATIVE); COLOR YELLOW (YELLOW); GLUCOSE NEGATIVE (NEGATIVE); KETONE SMALL mg/dL (NEGATIVE); NITRITE NEGATIVE (NEGATIVE); PLATELET COUNT 256 10x3/uL (130-400); PROTEIN NEGATIVE (NEGATIVE); SPECIFIC GRAVITY 1.025 (1.005-1.020); UROBILINOGEN NORMAL (NORMAL)
[2019-07-18 21:26] LABS: CALC OSMOLALITY 279 mosm/kg (275-300); CALCIUM 8.2 mg/dL (8.5-10.1); CARBON DIOXIDE 29.4 mmol/L (21.0-32.0); CHLORIDE - SERUM 105 mmol/L (98-107); CREATININE - SERUM 0.7 mg/dL (0.6-1.3); GLUCOSE 113 mg/dL (74-106); POTASSIUM - SERUM 3.7 mmol/L (3.5-5.1); SODIUM 141 mmol/L (136-145); UREA NITROGEN 8 mg/dL (7-18); eGFR NON AFRICAN AMERICAN > 90 mL/min (90-120)
[2019-07-18 21:39] LABS: ALBUMIN 3.5 g/dL (3.4-5.0); ALKALINE PHOSPHATASE 133 U/L (46-116); ALT (SGPT) 38 U/L (10-68); AMYLASE - SERUM 77 U/L (25-115); BILIRUBIN - TOTAL 0.28 mg/dL (0.2-1.3); LIPASE 162 U/L (73-393); PROTEIN - SERUM 7.5 g/dL (6.4-8.2)
[2019-07-18 21:43] LABS: TROPONIN-I < 0.017 ng/mL (0.000-0.060)
[2019-07-18 21:55] LABS: UDS - AMPHET NEGATIVE QUAL (NEGATIVE); UDS - BARB NEGATIVE QUAL (NEGATIVE); UDS - BENZO NEGATIVE QUAL (NEGATIVE); UDS - COCAINE NEGATIVE QUAL (NEGATIVE); UDS - OPIATE NEGATIVE QUAL (NEGATIVE); UDS - PCP NEGATIVE QUAL (NEGATIVE); UDS - THC POSITIVE QUAL (NEGATIVE)
[2019-07-19] MEDS ORDERED: FLAGYL500 MG PO (00:12)
[2019-07-19] MEDS ORDERED: ULTRAM50 MG PO (00:12)
[2019-07-19 02:18] VITALS: BP 124/69
== END 2019-07-19 02:18 | disposition home or self-care (01) ==
LOC: D.ER 19:39
PROVIDERS: Emergency Medicine
DX: K52.9 Noninfective gastroenteritis and colitis, unspecified (principal)

== ENCOUNTER → 2020-03-14 09:29 | Outpatient (CLI) | payer MEDICAID ==
[2019-07-18 20:28] VITALS: BMI 23.8
[~2020-03-14 09:29] MED LIST changes: +ULTRAM50 MG PO
== END | disposition home or self-care (01) ==
LOC: D.NM 09:29
PROVIDERS: ATTEND Nurse Practitioner Family
DX: E05.90 Thyrotoxicosis, unspecified without thyrotoxic crisis or storm (principal)